=== PATIENT | female | born 1975 | race Two or more races ===

== ENCOUNTER 2018-04-17 17:45 | Emergency (ER) | payer OTHER ==
[~2018-04-17] VITALS: Ht 170.2 cm; Wt 136.5 kg
[2018-04-17 18:05] VITALS: BP 144/75
--- NOTE | 2018-04-17 18:05 | PHYS DOC ---
Adult General Chief Complaint Chief Complaint: OTHER COMPLAINTS HPI HPI Patient is a 42 year old female who presents with post-operative complication. Patient underwent a venogram and arteriogram earlier today at [facility]. 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 She became alarmed when she noted some blood on the dressing which was placed earlier today in the right groin. Patient states the procedure was uncomplicated as far she is aware. She is not had any worsening pain. She denies any pallor, numbness, tingling in the right lower extremity. No weakness. She did contact the primary provider's office who performed the procedure and was advised by someone to come to the nearest emergency department for evaluation. No filipe bleeding. Simply some blood on the dressing. Review of Systems Review of Systems Constitutional: Denies fever or chills Eyes: Denies change in visual acuity Respiratory: Denies cough or shortness of breath GI: Denies abdominal pain : Denies dysuria or hematuria Musculoskeletal: Denies back pain Integument: Denies rash or skin lesions Neurologic: Denies headache All other systems were reviewed and found to be within normal limits, except as documented in this note. Allergies Allergies Allergies Coded Allergies Type Severity Reaction Last Updated Verified Sulfa (Sulfonamide Antibiotics) Allergy Severe HIVES 04/17/18 Yes oxaprozin Adverse Reaction Severe DEEP SLEEP 04/17/18 Yes Physical Exam Physical Exam Constitutional: Well developed, well nourished, no acute distress, non-toxic appearance HENT: Normocephalic, atraumatic, bilateral external ears normal, oropharynx moist Neck: Normal range of motion Abdomen: Bowel sounds normal, soft, no tenderness Skin: Warm, dry, no erythema, no rash Extremities: two puncture wounds over the right femoral artery and vein. Wounds are well-healing. Original dressing in place with small amt of dry sero- sanguinous drainage. No moist, active, or acute bleeding. Patient had strong, equal pulses in the dp and pt bilaterally. Capillary refill is < 2 seconds in the R LQ. Neurologic: Alert and oriented X 3, normal motor function, normal sensory function Psychologic: Affect normal Current Patient Data Vital Signs Vital Signs Date Time Temp Pulse Resp B/P (MAP) Pulse Ox O2 Delivery O2 Flow Rate FiO2 04/17/18 18:05 98.1 87 18 144/75 (98) 97 Room Air 98.1 EKG EKG [] Radiology/Procedures Radiology/Procedures [] Course & Med Decision Making Course & Med Decision Making Pertinent Labs and Imaging studies reviewed. (See chart for details) Patient is evaluated for possible post procedure complication after arteriogram and venogram in the right femoral area. On exam this evening, there is no evidence for any acute complication. She has strong equal pulses in the bilateral lower extremities. The puncture sites appear well healing. There is no active bleeding. She has strong femoral pulses. Bedside ultrasound is also used to visualize the femoral vein and femoral artery. There were no obvious aneurysms seen. The anatomy appeared normal. Patient was discharged home with reassurance. A new dressing was placed over her puncture site. She will follow- up with her primary provider. Signs and symptoms of aneurysm or decreased blood flow or return were discussed in the ER and all of her questions were answered. She will return to the ER should any of these occur. Dragon Disclaimer Dragon Disclaimer This electronic medical record was generated, in whole or in part, using a voice recognition dictation system. Departure Departure Disposition: 01 HOME, SELF-CARE Condition: GOOD Referrals: NON,STAFF (PCP) MARYLOU HILLMAN DO Apr 17, 2018 18:05
== END 2018-04-17 18:44 | disposition home or self-care (01) ==
LOC: ER 17:45
DX: M96.831 Postprocedural hemorrhage of a musculoskeletal structure following other procedure (principal); Z98.890 Other specified postprocedural states; Z88.2 Allergy status to sulfonamides; Z88.8 Allergy status to other drugs, medicaments and biological substances
CPT/HCPCS: 99284-25